=== PATIENT | female | born 2005 | race Asian ===

== ENCOUNTER 2023-06-02 03:45 | Emergency (ER) | payer OTHER ==
[~2023-06-02] VITALS: Ht 165.1 cm; Wt 90.7 kg
[2023-06-02 04:24] VITALS: BP 124/56; PULSE 64; RESP 18; TEMP 97.8; O2SAT 95
== END 2023-06-02 05:05 | disposition left against medical advice (07) ==
LOC: MED 03:45
DX: F32.9 Major depressive disorder, single episode, unspecified (principal)
CPT/HCPCS: 99281